=== PATIENT | female | born 1955 | race Caucasian/White ===

== ENCOUNTER 2016-10-03 10:40 | Emergency (ER) | payer OTHER ==
[2016-10-03] MEDS ORDERED: Sodium Chloride 0.9% 10 ML Syringe FLUSH PRN (11:19)
[2016-10-03] MEDS ORDERED: Sodium Chloride 0.9% 1,000 ML IV ONE (11:53)
[2016-10-03] MEDS ORDERED: Pantoprazole 40 MG Vial IVPUSH ONE (11:53)
[2016-10-03] MEDS ORDERED: diphenhydrAMINE 50 MG/ML SDV IV ONE (11:59)
[2016-10-03] MEDS ORDERED: Furosemide 40 MG/4 ML VIAL IVPUSH ONE (11:59)
[2016-10-03] MEDS ORDERED: Acetaminophen 325 MG Tab PO ONE (11:59)
[2016-10-03] MEDS ORDERED: Pantoprazole 40 MG in Sodium Chloride 0.9% 100 ML IV SCH (12:00)
[2016-10-03 12:04] LABS: CHLORIDE,CL 106 mmol/L (101-111); SODIUM,NA 136 mmol/L (135-145)
--- NOTE | 2016-10-03 12:07 | CR ---
Clinical history: 61-year-old female who experienced a "near syncopal" episode. Interpretation: Normal cardiac silhouette and pulmonary vascularity. No cephalization of vascular flow alveolar edema or dependent pleural effusion. No lung mass, hilar lymphadenopathy or focal lobar pneumonia. Some peribronchial "cuffing". No atelectasis/collapse. No pneumothorax. Mild kyphosis and arthritic spondylosis upper dorsal spine. CONCLUSION: No lung mass, lobar pneumonia or signs of heart failure.
--- NOTE | 2016-10-03 12:31 | EDM.PDOC ---
Scribed by Ivonne Saini 10/03/16 1229 for Brennan Michele MD ED HPI GENERAL MEDICAL PROBLEM - General Chief Complaint: Syncope Stated Complaint: CHARMAINE FEEL SICK [id number] Time Seen by Provider: 10/03/16 11:10 Source of Information: Reports: Patient, RN, RN Notes Reviewed History Limitations: Reports: No Limitations - History of Present Illness INITIAL COMMENTS - FREE TEXT/NARRATIVE: Patient arrives by POV with complaint of not feeling well in general for a couple of weeks, with one week of progressively worsening weakness, lightheadedness and recurrent near syncope. Patient admits to onset of uncomfortable sensation in the epigastric area sometime in August 2016. It has not been severe. She admits to black stool for at least one week. Denies chest pain or shortness of breath. No fevers or chills. Denies nausea or vomiting. Location: Reports: Abdomen Quality: Reports: Ache Severity: Severe Improves with: Reports: None Worsens with: Reports: None Associated Symptoms: Reports: No Other Symptoms - Related Data Allergies Allergy/AdvReac Type Severity Reaction Status Date / Time No Known Allergies Allergy Verified 10/03/16 11:01 Home Meds: Home Meds Losartan [Cozaar] 100 mg PO DAILY 10/03/16 [History] Past Medical History HEENT History: Reports: Impaired Vision Cardiovascular History: Reports: Hypertension Gastrointestinal History: Reports: GERD Endocrine/Metabolic History: Reports: Obesity/BMI 30+ Hematologic History: Reports: Iron Deficiency (anemia) - Past Surgical History GI Surgical History: Reports: Cholecystectomy Musculoskeletal Surgical History: Reports: Other (See Below) Other Musculoskeletal Surgeries/Procedures:: Fx right arm Social & Family History - Family History Family Medical History: Noncontributory ED ROS GENERAL - Review of Systems Review Of Systems: ROS reveals no pertinent complaints other than HPI. - Physical Exam Exam: See Below Exam Limited By: No Limitations General Appearance: Alert, No Apparent Distress, Obese, Other (pallor) Eye Exam: Bilateral Eye: EOMI, PERRL, Other (conjunctival pallor) Ears: Normal External Exam, Normal Canal, Hearing Grossly Normal, Normal TMs Nose: Normal Inspection, Normal Mucosa, No Blood Throat/Mouth: Normal Inspection, Normal Lips, Normal Teeth, Normal Gums, Normal Oropharynx, Normal Voice, No Airway Compromise Head Exam: Atraumatic, Normocephalic Neck: Normal Inspection, Supple, Non-Tender, Full Range of Motion Respiratory/Chest: No Respiratory Distress, Lungs Clear, Normal Breath Sounds, No Accessory Muscle Use, Chest Non-Tender Cardiovascular: Normal Peripheral Pulses, Regular Rate, Rhythm, No Edema, No Gallop, No JVD, No Murmur, No Rub GI/Abdominal: Other (benign obese) (Female) Exam: Deferred Rectal (Female) Exam: Black Stool (Hemoccult positive.), Heme + Stool Neuro Exam (Abbreviated): Alert, Oriented, CN II-XII Intact, Normal Cognition, Normal Gait, Normal Reflexes, No Motor/Sensory Deficits Back Exam: Normal Inspection, Full Range of Motion, NT Extremities: Normal Inspection, Normal Range of Motion, Non-Tender, No Pedal Edema, Normal Capillary Refill Psychiatric: Normal Affect, Normal Mood Skin Exam: Warm, Dry, Intact, Pallor EKG INTERPRETATION EKG Date: 10/03/16 Time: 11:31 Rhythm: Other (sinus rhythm) Rate (Beats/Min): 82 [place]: Normal P-Wave: Present QRS: Normal ST-T: Normal QT: Normal Course - Vital Signs Last Recorded V/S: Last Vital Signs Temp 36.3 C 10/03/16 10:57 Pulse 96 10/03/16 10:57 Resp 16 10/03/16 10:57 BP 113/62 10/03/16 10:57 Pulse Ox 100 10/03/16 10:57 Orthostatic Blood Pressure [ 92/77 Standing] Orthostatic Blood Pressure [ 100/57 Sitting] Orthostatic Blood Pressure [ 123/50 Supine] - Orders/Labs/Meds Orders: Active Orders 24 hr Category Date Time Status EKG 12 Lead [EKG Documentation Completion] [RC] STAT Care 10/03/16 11:17 Active Orthostatic Vital Signs [RC] ASDIRECTED Care 10/03/16 11:19 Active Peripheral IV Care [RC] . DIRECTED Care 10/03/16 11:19 Active FIBRINOGEN [COAG] Stat Lab 10/03/16 11:34 Received TSH ULTRASENSITIVE [CHEM] Stat Lab 10/03/16 11:34 Received TYPE AND SCREEN [BBK] Stat Lab 10/03/16 11:34 Received Pantoprazole [ProTONIX IV] 40 mg Med 10/03/16 12:00 Active Sodium Chloride 0.9% [Normal Saline] 100 ml IV .CONTINUOS Sodium Chloride 0.9% [Normal Saline] 1,000 ml Med 10/03/16 11:53 Active IV .BOLUS Sodium Chloride 0.9% [Saline Flush] Med 10/03/16 11:19 Active 10 ml FLUSH ASDIRECTED PRN Blood Transfusion Reflex Orders [OM.PC] Per Unit Ot 10/03/16 11:59 Ordered Routine Peripheral IV Insertion Adult [OM.PC] Stat [facility] 10/03/16 11:17 Ordered Transfuse Red Blood Cells [COMM] Stat [facility] 10/03/16 11:59 Ordered Medication Orders Sodium Chloride (Normal Saline) 1,000 mls @ 999 mls/hr IV .BOLUS ONE Stop: 10/03/16 12:53 Last Admin: 10/03/16 12:01 Dose: 999 mls/hr Pantoprazole Sodium 40 mg/ (Sodium Chloride) 100 mls @ 20 mls/hr IV .CONTINUOS JC Last Admin: 10/03/16 12:21 Dose: 20 mls/hr Sodium Chloride (Saline Flush) 10 ml FLUSH ASDIRECTED PRN PRN Reason: Keep Vein Open Last Admin: 10/03/16 11:48 Dose: 10 ml Labs: Laboratory Tests 10/03/16 10/03/16 10/03/16 Range/Units 11:27 11:34 11:34 WBC 12.0 H (5.0-10.0) 10^3/uL RBC 2.12 L (4.2-5.4) 10^6/uL Hgb 5.6 L* (12.0-16.0) g/dL Hct 18.5 L* (37.0-47.0) % MCV 87.3 (80-100) fL MCH 26.4 L (27.0-34.0) pg MCHC 30.3 L (33.0-35.0) g/dL Plt Count 342 (150-450) 10^3/uL Neut % (Auto) 70.9 (42.2-75.2) % Lymph % (Auto) 22.0 (20.5-50.1) % [place] % (Auto) 6.1 (2-8) % Eos % (Auto) 0.7 L (1.0-3.0) % Baso % (Auto) 0.3 (0.0-1.0) % PT 10.3 (9.0-12.0) SEC INR 1.0 (0.9-1.2) APTT 21.5 L (22.0-34.0) SEC Sodium (135-145) mmol/L Potassium (3.6-5.0) mmol/L Chloride (101-111) mmol/L Carbon Dioxide (21.0-31.0) mmol/L Anion Gap BUN (7-18) mg/dL Creatinine (0.6-1.3) mg/dL Est Cr Clr Drug Dosing mL/min Estimated GFR (MDRD) BUN/Creatinine Ratio Glucose (74-105) mg/dL Calcium (8.4-10.2) mg/dl Total Bilirubin (0.2-1.0) mg/dL AST (10-42) IU/L ALT (10-60) IU/L Alkaline Phosphatase (42-121) IU/L Creatine Kinase (26-174) IU/L Troponin I (0.00-0.02) ng/ml Total Protein (6.7-8.2) g/dl Albumin (3.2-5.5) g/dl Globulin Albumin/Globulin Ratio Amylase (28-100) U/L Lipase (22-51) U/L Urine Color Yellow (YELLOW) Urine Appearance Cloudy (CLEAR) Urine pH 5.5 (5.0-9.0) Ur Specific [place] 1.010 (1.005-1.030) Urine Protein Negative (NEGATIVE) Urine Glucose (UA) Negative (NEGATIVE) Urine Ketones Negative (NEGATIVE) Urine Occult Blood Trace-intact H (NEGATIVE) Urine Nitrite Negative (NEGATIVE) Urine Bilirubin Negative (NEGATIVE) Urine Urobilinogen 0.2 (0.2-1.0) mg/dL Ur Leukocyte Esterase Moderate H (NEGATIVE) Urine RBC 5-10 H /HPF Urine WBC 30-40 H (0-5/HPF) /HPF Ur Epithelial Cells Moderate H /HPF Amorphous Sediment Few (0/HPF) /HPF Urine Bacteria Rare (0-FEW/HPF) /HPF Urine Mucus Moderate H /LPF 10/03/ Range/Units 11:34 WBC (5.0-10.0) 10^3/uL RBC (4.2-5.4) 10^6/uL Hgb (12.0-16.0) g/dL Hct (37.0-47.0) % MCV (80-100) fL MCH (27.0-34.0) pg MCHC (33.0-35.0) g/dL Plt Count (150-450) 10^3/uL Neut % (Auto) (42.2-75.2) % Lymph % (Auto) (20.5-50.1) % Morris % (Auto) (2-8) % Eos % (Auto) (1.0-3.0) % Baso % (Auto) (0.0-1.0) % PT (9.0-12.0) SEC INR (0.9-1.2) APTT (22.0-34.0) SEC Sodium 136 (135-145) mmol/L Potassium 3.7 (3.6-5.0) mmol/L Chloride 106 (101-111) mmol/L Carbon Dioxide 20.0 L (21.0-31.0) mmol/L Anion Gap 13.7 BUN 38 H (7-18) mg/dL Creatinine 0.8 (0.6-1.3) mg/dL Est Cr Clr Drug Dosing 73.63 mL/min Estimated GFR (MDRD) > 60 BUN/Creatinine Ratio 47.50 Glucose 129 H (74-105) mg/dL Calcium 8.3 L (8.4-10.2) mg/dl Total Bilirubin 0.6 (0.2-1.0) mg/dL AST 22 (10-42) IU/L ALT 14 (10-60) IU/L Alkaline Phosphatase 50 (42-121) IU/L Creatine Kinase 63 (26-174) IU/L Troponin I < 0.02 (0.00-0.02) ng/ml Total Protein 5.7 L (6.7-8.2) g/dl Albumin 3.2 (3.2-5.5) g/dl Globulin 2.5 Albumin/Globulin Ratio 1.28 Amylase 68 (28-100) U/L Lipase 26 (22-51) U/L Urine Color (YELLOW) Urine Appearance (CLEAR) Urine pH (5.0-9.0) Ur Specific [place] (1.005-1.030) Urine Protein (NEGATIVE) Urine Glucose (UA) (NEGATIVE) Urine Ketones (NEGATIVE) Urine Occult Blood (NEGATIVE) Urine Nitrite (NEGATIVE) Urine Bilirubin (NEGATIVE) Urine Urobilinogen (0.2-1.0) mg/dL Ur Leukocyte Esterase (NEGATIVE) Urine RBC /HPF Urine WBC (0-5/HPF) /HPF Ur Epithelial Cells /HPF Amorphous Sediment (0/HPF) /HPF Urine Bacteria (0-FEW/HPF) /HPF Urine Mucus /LPF Meds: Medications Generic Name Dose Route Start Last Admin Trade Name Juan Jose PRN Reason Stop Dose Admin Sodium Chloride 1,000 mls @ 999 mls/hr 10/03/16 11:53 10/03/16 12:01 Normal Saline IV 10/03/16 12:53 999 mls/hr .BOLUS ONE Administration Pantoprazole Sodium 40 mg/ 100 mls @ 20 mls/hr 10/03/16 12:00 10/03/16 12:21 Sodium Chloride IV 20 mls/hr .CONTINUOS JC Administration Sodium Chloride 10 ml 10/03/16 11:19 10/03/16 11:48 Saline Flush FLUSH 10 ml ASDIRECTED PRN Administration Keep Vein Open Discontinued Medications Generic Name Dose Route Start Last Admin Trade Name Juan Jose PRN Reason Stop Dose Admin Acetaminophen 650 mg 10/03/16 11:59 10/03/16 12:27 Tylenol PO 10/03/16 12:00 650 mg NOW ONE Administration Diphenhydramine HCl 25 mg 10/03/16 11:59 10/03/16 12:28 Benadryl IV 10/03/16 12:00 25 mg ONETIME ONE Administration Furosemide 40 mg 10/03/16 11:59 Lasix IVPUSH 10/03/16 12:00 NOW ONE Pantoprazole Sodium 80 mg 10/03/16 11:53 10/03/16 12:03 Protonix Iv IVPUSH 10/03/16 11:54 80 mg .BOLUS ONE Administration - Radiology Interpretation Free Text/Narrative:: Chest x-ray: No lung mass, lobar pneumonia or signs of heart failure. See rad report. Departure - Departure Time of Disposition: 12:28 Disposition: DC/Tfer to Acute Hospital 02 Condition: Critical Clinical Impression: Upper GI hemorrhage, Severe anemia, Orthostatic hypertension - Discharge Information Referrals: PCP,None [Primary Care Provider] - Forms: ED Department Discharge, Interfacility Transfer EMTALA - My Orders Last 24 Hours: My Active Orders 10/03/16 11:17 EKG 12 Lead [EKG Documentation Completion] [RC] STAT Peripheral IV Insertion Adult [OM.PC] Stat 10/03/16 11:19 Orthostatic Vital Signs [RC] ASDIRECTED Peripheral IV Care [RC] . DIRECTED Sodium Chloride 0.9% [Saline Flush] 10 ml FLUSH ASDIRECTED PRN 10/03/16 11:34 FIBRINOGEN [COAG] Stat TSH ULTRASENSITIVE [CHEM] Stat TYPE AND SCREEN [BBK] Stat 10/03/16 11:53 Sodium Chloride 0.9% [Normal Saline] 1,000 ml IV .BOLUS 10/03/16 11:59 Blood Transfusion Reflex Orders [OM.PC] Per Unit Routine Transfuse Red Blood Cells [COMM] Stat 10/03/16 12:00 Pantoprazole [ProTONIX IV] 40 mg Sodium Chloride 0.9% [Normal Saline] 100 ml IV .CONTINUOS - Assessment/Plan Last 24 Hours: My Active Orders 10/03/16 11:17 EKG 12 Lead [EKG Documentation Completion] [RC] STAT Peripheral IV Insertion Adult [OM.PC] Stat 10/03/16 11:19 Orthostatic Vital Signs [RC] ASDIRECTED Peripheral IV Care [RC] . DIRECTED Sodium Chloride 0.9% [Saline Flush] 10 ml FLUSH ASDIRECTED PRN 10/03/16 11:34 FIBRINOGEN [COAG] Stat TSH ULTRASENSITIVE [CHEM] Stat TYPE AND SCREEN [BBK] Stat 10/03/16 11:53 Sodium Chloride 0.9% [Normal Saline] 1,000 ml IV .BOLUS 10/03/16 11:59 Blood Transfusion Reflex Orders [OM.PC] Per Unit Routine Transfuse Red Blood Cells [COMM] Stat 10/03/16 12:00 Pantoprazole [ProTONIX IV] 40 mg Sodium Chloride 0.9% [Normal Saline] 100 ml IV .CONTINUOS I have read and agree with the documentation that has been completed regarding this visit. By signing this record, I attest that the documentation was completed in my physical presence and is an accurate record of the encounter.
[2016-10-03 13:24] VITALS: BP 116/56
--- NOTE | 2016-10-12 10:24 | EKG ---
10/03/2016- NOAH SANTIAGO - This is a standard 12-lead EKG showing normal sinus rhythm with a ventricular rate 82 beats per minute. Normal LA interval and QRS duration. Normal QTc. No ST-T changes. [facility] /[id number] [facility]
== END 2016-10-03 13:57 ==
LOC: DL.ED 10:40
DX: K92.2 Gastrointestinal hemorrhage, unspecified (principal); D64.9 Anemia, unspecified; I95.1 Orthostatic hypotension; I10 Essential (primary) hypertension; K21.9 Gastro-esophageal reflux disease without esophagitis; E66.9 Obesity, unspecified; Z79.899 Other long term (current) drug therapy; Z90.49 Acquired absence of other specified parts of digestive tract; Z98.890 Other specified postprocedural states
CPT/HCPCS: 36415; 36430; 71020; 80053; 81001; 82150; 82272; 82550; 83690; 84443; 84484; 85025; 85384; 85610; 85730; 86850; 86900; 86901; 86920; 86922; 93005; 96365; 96366; 96375; 99285; A9270; C9113; J1200; J7030; J7050; P9016